=== PATIENT | female | born 1990 | race Caucasian/White ===

== ENCOUNTER 2016-09-26 09:11 | Emergency (ER) | payer OTHER ==
[~2016-09-26] VITALS: Ht 154.9 cm; Wt 53.5 kg
--- NOTE | 2016-09-26 10:03 | ED HEADACHE COMPLAINT ---
History of Present Illness General Chief Complaint: Headache Stated Complaint: MIGRAINE SINCE APR Source: patient, friend Exam Limitations: no limitations Vital Signs & Intake/Output Vital Signs & Intake/Output Vital Signs Date Time Temp Pulse Resp B/P B/P Pulse O2 O2 Flow FiO2 Mean Ox Delivery Rate 09/26 1138 96.5 78 16 129/78 98 Room Air 09/26 0915 98.7 78 15 132/77 94 Room Air Room Air Allergies Coded Allergies: No Known Allergies (09/26/16) Triage Note: PT TO ED FOR C/C OF HEADACHE SINCE APRIL THAT IS INTERMITTENT. BUT WHEN THE HEADACHES COME THEY LAST FOR WEEKS PER PT. DENIES ANY CHANGE IN VISION, AND ONLY "NAUSEA SOMETIMES". REPORTS HEAD FEELS LIKE THERE IS A LOT OF PRESSURE AND HEAD FEELS NUMB. Triage Nurses Notes Reviewed? yes Onset: Gradual Duration: week(s): Timing: recent history Quality/Severity: moderate, constant, pressure, throbbing Modifying Factors: Worsens With: other (lying down). : No Patient currently breastfeeds: No HPI: 26yo female presents to ED complaining of persistent headache. Patient states that headache started in April and has been constant since then except for about 3 weeks during which it resolved. Headahce is desribed as generalized and bilateral, trobbing, constant, pressure feeling. The patient was evaluated at [facility] and had blood work drawn, results normal, and was given a home prescription for a medication, she does not recall the name of med. No medication she has tried has helped, including motrin, tylenol, excedrin, caffine. Lying down makes her headache worse. The is no associated visual changes or aura, the patient states her vision is normal, she does not require glasses for distance or reading. Headache is constant throughout the day and does not fluctuate based on time of day. She states she feels intermittent lightheadedness with her headache however does not feel as though she may pass out. Her last menstrual period was the beginning of September. She denies malaise, nause, vomiting, dizziness, presyncope, tinitus, abdominal pain, chest pain, fevers, chills. She has no family history of headaches or neurological issues that she knows of. (BARI JIMENEZ,GLORIA) Reconcile Medications Butalb/Acetaminophen/Caffeine (Fioricet 50-300-40 MG Capsule) 50 MG-300 MG-40 MG CAPSULE 1 TAB PO Q6 PRN PAIN Butalb/Acetaminophen/Caffeine (Fioricet 50-300-40 MG Capsule) 50 MG-300 MG-40 MG CAPSULE 1 TAB PO TID PRN headache (MERCED SHERMAN,GUILLE) Past History Travel History Traveled to [place] past 21 day No Medical History Any Pertinent Medical History? none Neurological: NONE EENT: NONE Cardiovascular: NONE Respiratory: NONE Gastrointestinal: NONE Hepatic: NONE Renal: NONE Musculoskeletal: NONE Psychiatric: NONE Endocrine: NONE Blood Disorders: NONE Cancer(s): NONE INSTRUMENTATION ENGINEER/Reproductive: NONE Surgical History Surgical History: non-contributory Psychosocial History What is your primary language Uzbek Tobacco Use: Never used ETOH Use: denies use Illicit Drug Use: denies illicit drug use Family History Hx Contributory? No (GLORIA CANDELARIA PA-C) Review of Systems Review of Systems Constitutional: Reports: no symptoms. Eyes: Reports: no symptoms. Ears, Nose, Throat, Mouth: Reports: no symptoms. Respiratory: Reports: no symptoms. Cardiovascular: Reports: no symptoms. Gastrointestinal/Abdominal: Reports: no symptoms. Genitourinary: Reports: no symptoms. Musculoskeletal: Reports: no symptoms. Skin: Reports: no symptoms. Neurological/Psychological: Reports: see HPI. Hematologic/Endocrine: Reports: no symptoms. Endocrine: Reports: no symptoms. Immunologic/Allergic: Reports: no symptoms. All Other Systems: Reviewed and Negative (GLORIA CANDELARIA PA-C) Physical Exam Physical Exam General Appearance: well developed/nourished, no apparent distress, alert, awake Head: atraumatic, normal appearance Eyes: Bilateral: normal appearance, PERRL, EOMI. Ears, Nose, Throat: hearing grossly normal, TMs with good cone of light bilaterally , partial obstruction of view due to canal cerumen, no erythema observed Neck: normal inspection, supple, full range of motion Respiratory: normal breath sounds, no respiratory distress Cardiovascular: regular rate/rhythm Back: normal inspection, normal range of motion Extremities: normal inspection, normal range of motion Psychiatric: awake, alert, oriented x 3 Cranial Nerves: normal hearing, normal speech, PERRL, CN 2-12 normal Coordination/Gait: normal finger to nose, normal gait Motor/Sensory: no motor/sensory deficits Skin: intact, normal color, warm/dry Core Measures Severe Sepsis Present: No Septic Shock Present: No (GLORIA CANDELARIA PA-C) Progress Differential Diagnosis: cluster JOHNSON, IC mass/tumor, intracranial Hem., meningitis , migraine JOHNSON, subarach. Hem., tension JOHNSON, temporal arteritis, TMJ syndrome Plan of Care: Orders Procedure Date/time Status URINE DRUGS OF ABUSE 09/26 945 Complete URINE 09/26 945 Complete Laboratory Tests 09/26/16 1000: Urine Opiates Screen < 100.00, Methadone Screen < 40, Barbiturate Screen < 60, Ur Phencyclidine Scrn < 6.00, Amphetamines Screen < 100, U Benzodiazepines Scrn < 85, Urine Cocaine Screen < 50, Urine Cannabis Screen < 5.00, Urine Test NEGATIVE 11:[address] is within normal limits, no mass. Patient states she experienced some improvement following Fioricet dose in ED. PAtient has had no visual changes, vision change unlikely etiology of headache. TMJ was considered however no pain with chewing, no tenderness over mastoid. SAH was considered however very low suspicion given clinical presentation, CT scan, and exam. This headache has been same in severity and quality as previous headaches. Patient was discussed with Dr. Roy. Patient was given a prescription of Fioricet to go home with and a neurology referral. She will follow up with her primary care doctor. She will return with any worsening or new symptoms or concerns. She is in agreement with the plan of care. (GLORIA CANDELARIA PA-C) Diagnostic Imaging: Viewed by Me: Radiology Read. Discussed w/RAD: Radiology Read. Radiology Impression: PATIENT: RITA ORO PRESENT AGE: 26 PATIENT ACCOUNT NO: [id number] : 91 LOCATION: [facility] ORDERING PHYSICIAN: GUILLE ROY MD SERVICE DATE: 09/26/16 EXAM TYPE: CAT - CT HEAD WO IV CONTRAST EXAMINATION: CT HEAD WITHOUT CONTRAST CLINICAL INFORMATION: Progressive occipital headaches COMPARISON: None TECHNIQUE: Contiguous axial imaging was performed from the skull base to vertex without intravenous administration of contrast. DLP: 610.54 mGy-cm FINDINGS: There is no evidence of acute intracranial hemorrhage or territorial infarction. No abnormal mass effect or midline shift is seen. [place] to white matter differentiation is well preserved. No extra-axial fluid collections are identified. The ventricles are normal in size. There is no abnormal attenuation within the brain parenchyma. The osseous structures and soft tissues are normal. The mastoid air cells and visualized portions of the paranasal sinuses are well aerated. IMPRESSION: No acute intracranial pathology. DICTATED BY: ARMEN TERRELL MD DATE/TIME DICTATED :09/26/161102 PILLOWCASE CUTTER:DANYEL DATE/TIME TRANSCRIBED:09/26/161102 CONFIDENTIAL, DO NOT COPY WITHOUT APPROPRIATE AUTHORIZATION. < Electronically signed in Other Vendor System> SIGNED BY: ARMEN TERRELL MD 09/26/16 1110 (GLORIA CANDELARIA PA-C) Departure Departure Disposition: HOME OR SELF CARE Condition: Stable Clinical Impression Primary Impression: Headache Referrals: ROSEANNA SHERMAN,DEON FRANCO MD,PEPITO Santamaria (PCP/Family) Additional Instructions: Take Fioricet as prescribed as needed for headaches. Follow up with your primary care doctor. Follow up with neurologist, Dr. Grimm, call to make an appointment. Return with any worsening symptoms or concerns. Departure Forms: Customer Survey General Discharge Information (GLORIA CANDELARIA PA-C) Departure Prescriptions: Current Visit Scripts Butalb/Acetaminophen/Caffeine (Fioricet 50-300-40 MG Capsule) 1 TAB PO Q6 PRN PAIN #20 TAB Butalb/Acetaminophen/Caffeine (Fioricet 50-300-40 MG Capsule) 1 TAB PO TID PRN headache #20 TAB PA/MANAGER OPERATIONS Co-Sign Statement Statement: ED Attending supervision documentation- [] I saw and evaluated the patient. I have also reviewed all the pertinent lab results and diagnostic results. I agree with the findings and the plan of care as documented in the PA's/MANAGER OPERATIONS's documentation. [X] I have reviewed the ED Record and agree with the PA's/MANAGER OPERATIONS's documentation. [] Additions or exceptions (if any) to the PAs/MANAGER OPERATIONS's note and plan are summarized below: [] (MERCED SHERMAN,GUILLE)
--- NOTE | 2016-09-26 11:10 | CT SCAN REPORT ---
EXAMINATION: CT HEAD WITHOUT CONTRAST CLINICAL INFORMATION: Progressive occipital headaches COMPARISON: None TECHNIQUE: Contiguous axial imaging was performed from the skull base to vertex without intravenous administration of contrast. DLP: 610.54 mGy-cm FINDINGS: There is no evidence of acute intracranial hemorrhage or territorial infarction. No abnormal mass effect or midline shift is seen. [place] to white matter differentiation is well preserved. No extra-axial fluid collections are identified. The ventricles are normal in size. There is no abnormal attenuation within the brain parenchyma. The osseous structures and soft tissues are normal. The mastoid air cells and visualized portions of the paranasal sinuses are well aerated. IMPRESSION: No acute intracranial pathology.
[2016-09-26] MEDS ORDERED: FIORICET 50-301 EACH PO ×2 (11:27→12:58)
[2016-09-26 11:38] VITALS: BP 129/78
== END 2016-09-26 11:44 ==
LOC: ERH 09:11
DX: R51 Headache (principal)
CPT/HCPCS: 80307; 81025